=== PATIENT | female | born 1950 | race Caucasian/White ===

== ENCOUNTER 2023-09-14 19:32 | Emergency (ER) | payer MEDICARE ==
[~2023-09-14] VITALS: Ht 162.6 cm; Wt 95.3 kg
[2023-09-14 19:33] VITALS: BP 174/73; PULSE 8; RESP 16
[2023-09-14] MEDS: DIPH,PERTUSS(ACELL),TET VAC/PF 0.5 ML VIAL IM ONE (20:12)
[2023-09-14 20:40] LABS: BASOPHILS # (AUTO) 0.05 K/uL (0.00-0.20); BASOPHILS % (AUTO) 0.9 % (0.0-5.0); EOSINOPHILS # (AUTO) 0.22 K/uL (0.00-0.70); EOSINOPHILS % (AUTO) 3.9 % (0.0-8.0); HEMATOCRIT 40.7 % (36-48); IMMATURE GRANULOCYTE ABSOLUTE 0.01 K/uL (0-1); LYMPHOCYTES # (AUTO) 1.4 K/uL (1.0-4.8); LYMPHOCYTES % (AUTO) 23.9 % (21.0-51.0); MEAN CORPUSCULAR HEMOGLOBIN 30.7 pg (27.0-33.0); MEAN CORPUSCULAR HGB CONC 33.7 g/dL (32.0-36.0); MEAN CORPUSCULAR VOLUME 91.3 fL (79-99); MONOCYTES # (AUTO) 0.4 K/uL (0.1-1.0); MONOCYTES % (AUTO) 7.1 % (3.0-13.0); NEUTROPHILS # (AUTO) 3.6 K/uL (1.8-7.7); PLATELET COUNT (AUTO) 235 K/uL (130-400); RED BLOOD CELL COUNT(AUTO) 4.46 MIL/uL (4.00-5.50); RED CELL DISTRIBUTION WIDTH 12.9 % (11.0-15.5); WHITE BLOOD COUNT (AUTO) 5.7 K/uL (4.8-10.8)
[2023-09-14 20:59] LABS: INR 0.94 (0.85-1.15); PROTHROMBIN TIME 11.1 SEC (9.6-11.6)
[2023-09-14 21:00] LABS: CREATININE 0.9 mg/dL (0.5-1.0); POTASSIUM 3.5 mmol/L (3.5-5.1)
[2023-09-14 21:04] LABS: ALBUMIN 3.4 g/dL (3.5-5.0); BILIRUBIN,TOTAL 0.2 mg/dL (0.2-1.0); TOTAL PROTEIN, SERUM 6.6 g/dL (6.0-8.3)
[2023-09-14 22:33] LABS: INR <= 0.93 (0.85-1.15); PROTHROMBIN TIME 10.9 SEC (9.6-11.6)
[2023-09-14] MEDS ORDERED: CLIN-141 PO (23:03)
== END 2023-09-14 23:09 | disposition home or self-care (01) ==
LOC: EDH 19:32
DX: T63.001A Toxic effect of unspecified snake venom, accidental (unintentional), initial encounter (principal); E78.00 Pure hypercholesterolemia, unspecified; I10 Essential (primary) hypertension; Z88.0 Allergy status to penicillin; Z88.2 Allergy status to sulfonamides; Z90.710 Acquired absence of both cervix and uterus; Y92.89 Other specified places as the place of occurrence of the external cause
CPT/HCPCS: 36415; 73630; 80053; 85025; 85610; 90471; 90715